=== PATIENT | male | born 1985 | race Hispanic/Latino ===

== ENCOUNTER 2019-02-02 20:23 | Emergency (ER) | payer SELFPAY ==
[2019-02-02] MEDS ORDERED: Ibuprofen 800 MG TAB ONE (20:48)
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
== END 2019-02-02 21:36 | disposition home or self-care (01) ==
LOC: SCSER 20:23
DX: M54.5 Low back pain (principal); M25.561 Pain in right knee; F17.210 Nicotine dependence, cigarettes, uncomplicated; V43.52XA Car driver injured in collision with other type car in traffic accident, initial encounter
CPT/HCPCS: 72100

== ENCOUNTER 2019-09-14 08:34 | Outpatient (CLI) | payer OTHER ==
--- NOTE | 2019-09-14 08:55 | RAD ---
Left index finger 3 views HISTORY: Left finger injury. FINDINGS: Joint spaces are preserved. No acute fracture or dislocation are apparent. Soft tissue irre gularity at the distal tuft present without metallic foreign body evident. IMPRESSION: Soft tissue injury. No acute osseous abnormalities or radiopaque foreign bodies apparent.
== END 2019-09-14 08:35 | disposition home or self-care (01) ==
LOC: RAD 08:34
DX: S61.231A Puncture wound without foreign body of left index finger without damage to nail, initial encounter (principal)

== ENCOUNTER 2020-01-25 15:27 | Inpatient (IN) | payer SELFPAY ==
[~2020-01-25 15:27] MED LIST: Iopamidol-370 76% 500 ML 1 ML ONE
[2020-01-25] MEDS ORDERED: Ibuprofen 800 MG TAB ONE (16:04)
[2020-01-25] MEDS ORDERED: HYDROcodone/Acetaminophen 5/325 mg Tablet ONE ×2 (16:04)
[2020-01-25 16:27] LABS: Bacteria/HPF None Seen HPF (None Seen); Bilirubin Negative (Negative); Blood, Urine 1+ (Negative); Clarity Clear (Clear); Glucose, Urine (Dipstick) Normal (Negative); Leukocyte Negative Leu/uL (Negative); Mucous/LPF Rare LPF (<2+); Nitrite Negative (Negative); Protein, Urine (Dipstick) 50 mg/dL (Neg-Trace); Squamous Epithelial 0-3 HPF (0-3); Urobilinogen Normal mg/dL (Less than 2); WBC/HPF 0-3 HPF (0-3)
--- NOTE | 2020-01-25 16:55 | ULT ---
Exam: Testicular ultrasound HISTORY: Mass posterior to the testicle. Associated pain. COMPARISON: None TECHNIQUE: Sagittal and transverse imaging of the left and right hemiscrotum are performed. Testicula r Doppler is performed with grayscale, color-flow, Doppler imaging and spectral waveform analysis. FINDINGS: Right hemiscrotum: Testicle: Homogeneous echotexture. No intratesticular masses. Right testicle measurements: 4.8 x 2.4 x 3.5 Right epididymis: Normal echotexture. Right epididymis measurements: 1.3 x 0.8 cm Hydrocele: None Left hemiscrotum: Left testicle: Homogeneous echotexture. No intratesticular masses. Left testicle measurements: 3.1 x 2.2 x 4.6 cm Left epididymis: Normal echotexture. Left epididymis measurements:1.2 x 0.7 cm Hydrocele: None Testicular Doppler: There is symmetric vascular flow to the left and right testicle. Perineal region: There is a nonvascular hypoechoic focus with punctate echogenic foci, measuring 2.3 x 2.4 x 2.2 cm. There is mild vascularity in the adjacent soft tissues. The possibility of a focal area of infection/inflammation the perineum cannot be excluded. IMPRESSION: 1. Normal testicular Doppler. 2. Nonvascular isoechoic focus with peripheral vascularity. Correlate for focal infection/inflammatio n. 3. If there is concern for a perirectal abscess, better interrogation with a postcontrast pelvic CT m ay be beneficial.
--- NOTE | 2020-01-25 18:29 | CT ---
PELVIC CT WITHOUT CONTRAST: 01/25/20 HISTORY: Posterior perineal pain x2 weeks. COMPARISON: 12/19/15. FINDINGS: The visualized psoas muscles, alimentary canal and mesentery do not demonstrate any acute inflammator y change. The urinary bladder has a normal appearance. The visualized osseous structures do not demon strate any acute abnormality. Symmetric appearance of the hip joint spaces. In the anterior perineum, just posterior to the scrotum is a peripherally enhancing centrally hypoden sity measuring 1.9 cm anterior posterior x 1.5 cm mediolateral x 2.9 cm craniocaudal. There does appe ar to be abnormal soft tissue density which is contiguous with the midline subcutaneous fat and appe ars to extend near the anterior margin of the distal rectum. When comparing the previous examination, there was evidence of abscess in the current region of concern. Findings may represent a recurrent a bscess which may be associated with the distal rectum. Presacral fat is preserved. No abnormal edema or attenuation of the gluteal subcutaneous fat as well as the gluteal musculature. IMPRESSION: Peripherally enhancing centrally hypodense lesion at the anterior base of the perineum which may be c ontiguous with the anterior margin of the rectum. Abscess/phlegmonous change is favored. General surg ical consultation for possible debridement is recommended. POS: PPP
[2020-01-25] MEDS: Piperacillin/Tazobactam 3.375 GM in Sodium Chloride 0.9% 100 ML IVPB SCH (20:15)
[2020-01-25 22:32] VITALS: BMI 32.5
[2020-01-25] MEDS ORDERED: Sodium Chloride 0.9% 1,000 ML IV SCH (23:59)
[2020-01-26] MEDS: Piperacillin/Tazobactam 3.375 GM in Sodium Chloride 0.9% 100 ML IVPB SCH (02:21)
[2020-01-26] MEDS ORDERED: Lidocaine 1% (PF) 30 ML VIAL ONE (08:35)
[2020-01-26] MEDS ORDERED: Fentanyl 100 MCG/2 ML VIAL SLOW IVP SCH ×2 (08:45→10:15)
--- NOTE | 2020-01-26 10:03 | HP ---
REASON FOR ADMISSION: Perineal abscess. CHIEF COMPLAINT: "It hurts really bad in my scrotum." HISTORY OF PRESENT ILLNESS: Mr. Jordan Win is a 34-year-old male, who presented to the ER with approximately 2-week history of perineal pain. The patient previously has history of an abscess in the same region, which apparently was drained [place] [address] Jackson. He had a similar presentation at this time and started having worsening pain and discomfort in his perineal area. He found that the pain was alleviated by lifting the scrotum. Unfortunately, the pain got to the point where he could walk properly without lifting his scrotum and he did want to go out in public, trying to hold his scrotum up while attempting to ambulate. His girlfriend stated that he needed to come into the emergency room. Upon arrival to the emergency room, the ER doctor noted that he did have a hard mass in the perineal area toward the posterior base of the scrotum. An ultrasound was done, which demonstrated a likely fluid-filled mass, which was not well visualized on ultrasound. A CT was recommended, which was then performed, which demonstrated approximately 2.9 cm x 1.5 cm fluid-filled collection consistent with an abscess in the area anterior to the rectum and posterior to the scrotum and testicles. This is pretty much the exact same location that the patient previously had reported for an I and D with Dr. Jackson in the past. The patient denies any fevers. He states he is urinating fine without any blood. He is not having urinary difficulty or defecation problems. He denies any blood in his stool. He has had no nausea or vomiting. He otherwise states he feels fine aside from the pain in his perineal area. ALLERGIES: NONE. HOME MEDICATIONS: None. PAST MEDICAL HISTORY: Perineal abscess. PAST SURGICAL HISTORY: I and D of perineal abscess. SOCIAL HISTORY: The patient denies smoking, alcohol abuse, or illicit drug use. FAMILY HISTORY: Noncontributory. REVIEW OF SYSTEMS: A 12-point review of systems reviewed and negative other than what was commented on the HPI. PHYSICAL EXAMINATION: VITAL SIGNS: Temperature 98, pulse 72, respirations 18, blood pressure 145/88, and saturation 97% on room air. GENERAL: Appears slightly uncomfortable, but appears stated age. Overweight. Answering questions appropriately. Well nourished, well developed. HEENT: Normocephalic, atraumatic. Pupils are symmetric and round. Sclerae are nonicteric. Trachea midline. Moist mucous membranes. CARDIOVASCULAR: Regular rate and rhythm. Normal S1 and S2. Symmetric pulses. CHEST: Nonlabored breathing, symmetric expansion of the lungs, clear anteriorly. ABDOMEN: Soft, nontender, and nondistended. Positive bowel sounds. No organomegaly. No rebound or guarding. No hernias. GENITOURINARY: The patient is circumcised. Penis is without lesions and nonfocal. Testes are bilaterally descended. There are no significant concerning changes on the anterior scrotum. With the scrotum elevated, there is an extremely tender palpable mass at the area of the posterior scrotum in between the spermatic cords, which is very tender to touch. There is no overlying skin abnormality erythema, but the nodule is firm and extremely tender to palpation. RECTAL: Deferred at this time. EXTREMITIES: No clubbing, cyanosis, or edema. MUSCULOSKELETAL: No joint deformities or joint erythema noted. Full range of motion. SKIN: Warm and dry. No rashes or lesions. Good turgor. Including the area and the perineum, where there is no overlying erythema or rash. NEUROLOGIC: Cranial nerves II through XII grossly intact. No focal or sensory motor deficits identified. LYMPH: No lymphadenopathy in the inguinal, popliteal, inner thighs, supraclavicular, or cervical areas. PSYCHIATRIC: Alert and oriented x3. Appropriate mood and affect. LABORATORY EVALUATION: Urinalysis demonstrates 7 to 10 rbc's, 1+ blood, 50 protein. Testicular ultrasound done on January 24 demonstrates normal testicular Doppler with nonvascular isoechoic focus with peripheral vascularity concerning for a possible abscess. Contrasted CT was recommended. Pelvic CT done on the same date following the ultrasound with contrast demonstrates a peripherally enhancing centrally hypodense lesion at the anterior base of the perineum, which may be contiguous with the anterior margin of the rectum, abscess or phlegmon changes as favored. ASSESSMENT AND PLAN: A 34-year-old male with a likely perineal abscess. By physical exam, this does not appear contiguous with the rectum. I discussed this with General Surgery and on their review of the imaging, they also felt that this was not contiguous with the rectum. They felt a simple I and D similar to what Dr. Jackson had performed last time should be sufficient. I discussed doing this in the operating room versus doing it at bedside. The patient stated he was willing to try bedside, but we did agree that if it was too painful that we would proceed to the operating room. The patient was consented. All equipment was obtained. The patient's skin was prepped and draped in usual sterile fashion with Betadine. Approximately 25 mL of 1% lidocaine plain was infiltrated around the skin and abscess cavity. Incision was initially started with an 11 blade through the perineal skin. As we approached the abscess cavity, the patient started to have increasingly higher amounts of pain until the patient stated he could not tolerate the pain anymore. Despite additional attempts at using more lidocaine, the patient was not able to tolerate. Therefore, we had not yet reached the abscess cavity. I think the patient has too much pain and we will likely not be able to tolerate full debridement as such I elected to pack the incision thus far, apply a Savi-Pad and we will keep the patient on antibiotics and pain medication n.p.o. and plan to go to the operating room, which arrangements have been made. PLAN: 1. Keep n.p.o. 2. Continue Zosyn. 3. SCDs on-call to the OR. 4. We will plan for OR for surgical debridement, cultures, and packing. 5. General Surgery to be on standby in case there is concern for continuity with the rectal area. Job ID: [id number]
[2020-01-26] MEDS ORDERED: Fentanyl 100 MCG/2 ML VIAL ONE (10:17)
[2020-01-26] MEDS ORDERED: Bupivacaine 0.25% HCL 30 ML VIAL ONE (10:19)
[2020-01-26] MEDS ORDERED: Gentamicin 80 MG/2 ML VIAL ONE (10:19)
[2020-01-26] MEDS ORDERED: Midazolam HCl 2 mg/2 ml Vial ONE (10:43)
[2020-01-26] MEDS ORDERED: Piperacillin/Tazobactam 3.375 GM VIAL ONE (11:10)
[2020-01-26] MEDS ORDERED: Dexamethasone 20 MG/5 ML VIAL ONE (11:15)
[2020-01-26] MEDS ORDERED: Ketorolac Tromethamine 30 MG/ML VIAL ONE (11:15)
[2020-01-26] MEDS ORDERED: PROPOFOL 200 MG/20 ML VIAL ONE (11:15)
[2020-01-26] MEDS ORDERED: Ondansetron PF 4 MG/2 ML Vial ONE (11:15)
[2020-01-26] MEDS ORDERED: Lidocaine 1% PF 5 ML VIAL ONE (11:15)
[2020-01-26] MEDS ORDERED: EPHEDRINE 25 MG/5 ML SYRINGE ONE (11:15)
[2020-01-26] MEDS ORDERED: Promethazine HCl 25 MG/ML VIAL IM PRN (12:00)
[2020-01-26] MEDS ORDERED: Ondansetron HCl/PF 4 MG/2 ML Vial IVP PRN (12:00)
[2020-01-26] MEDS ORDERED: Promethazine HCl 25 MG/ML VIAL SLOW IVP PRN (12:00)
[2020-01-26] MEDS ORDERED: Meperidine HCl/PF 25 MG/ML VIAL SLOW IVP PRN (12:00)
[2020-01-26] MEDS ORDERED: HYDROmorphone 2 MG/ML VIAL SLOW IVP PRN (12:00)
[2020-01-26] MEDS ORDERED: Morphine 2 MG/ML SYRINGE SLOW IVP PRN (12:07)
[2020-01-26] MEDS ORDERED: HYDROcodone/Acetaminophen 5/325 mg Tablet PO PRN ×2 (12:07)
--- NOTE | 2020-01-26 12:26 | DIS ---
DATE OF ADMISSION: 01/25/2020 DATE OF DISCHARGE: 01/26/2020 DISCHARGING PHYSICIAN: Vitaly Hammond MD ADMITTING DIAGNOSIS: Perineal abscess. DISCHARGE DIAGNOSIS: Perineal abscess. PROCEDURES PERFORMED WHILE INPATIENT: Incision and drainage of abscess with cystoscopy. BRIEF HISTORY: Mr. Ortega is a 34-year-old male with a prior history of perineal abscess. He began having pain for approximately 2 weeks and was found to have a perineal abscess on imaging when coming to the ER for ongoing and worsening pain. He was admitted to the hospital, where I initially evaluated him. The full H and P can be found in the scanned portion of the [employer]. HOSPITAL COURSE: After my initial evaluation with the patient, we attempted to do a bedside drainage of his abscess, but due to the deeper nature of the abscess, the patient's pain was too much, so we aborted and elected to complete the I and D in the operating room. His UA did demonstrate microhematuria preoperatively, so we performed a cystoscopy in the same setting. The cystoscopy did not demonstrate any abnormalities and the I and D was completed as the operative notes outlined in the dictated portion on the [employer] system. Postoperatively, the patient was doing well. He was given instructions on how to pack his wound, which was left open. He will then be discharged home and I will see him on an outpatient basis. DISPOSITION: Discharge to home. DISCHARGE CONDITION: Good. DISCHARGE MEDICATIONS: The patient will start [place] 5/325 mg 1 to 2 tabs p.o. q.4 hours p.r.n. pain. DISCHARGE INSTRUCTIONS: He should notify me for worsening drainage, fevers over 101, or increasing redness or swelling in the scrotum. Dressings need to be changed every day with iodoform, which will be explained by the nursing staff. He can shower, but should not submerge under water. He should avoid driving while on narcotic pain medicine. I will see him back in 1 week for postop evaluation. Job ID: [id number]
--- NOTE | 2020-01-26 12:32 | OP ---
DATE OF PROCEDURE: 01/26/2020 SERVICE: Urology. PREOPERATIVE DIAGNOSIS: Perineal abscess. POSTOPERATIVE DIAGNOSIS: Perineal abscess. PROCEDURES PERFORMED: Cystoscopy, and I and D of abscess. INDICATION FOR PROCEDURE: Mr. Ortega is a 34-year-old male with a prior history of a perineal abscess. He presented with another abscess this time. It was a little deep, but we attempted to perform an I and D at bedside. Unfortunately, the patient had too much pain, so we have elected to proceed with completing the I and D in the operating room. Risks and benefits have been discussed and he has agreed to proceed forward. Of note, the patient did have microhematuria on his UA. I told him that we should consider doing a cystoscopy as well to ensure that there is no continuity or source from the urinary tract. DESCRIPTION OF PROCEDURE: After identification of armband and verification of consent, the patient was brought back to the operating room, where he underwent general anesthesia with LMA. He was placed in the dorsal lithotomy position and prepped and draped in usual sterile fashion. After appropriate time-out, the previous incision which had been started at bedside was inspected. There was some bleeding from the skin edges, but otherwise everything else looked intact. Using a finder needle, which was an 18-gauge needle connected to a 10 mL syringe, several sticks were made through until the abscess cavity was identified. Once the abscess cavity was identified, an 11 blade was used to slightly expand the site of where the needle had gone through until the abscess cavity was opened. There was immediate release of approximately 5 to 10 mL of purulent fluid. This was sent for culture swab for Gram stain, anaerobes, and aerobes culture. The abscess cavity was completely cleaned out using a Yankauer suction until the abscess cavity was fully inspected. This was then copiously washed out with antibiotic irrigation using gentamicin in normal saline. Upon completion, the cavity was well opened. Inspection inside did not reveal any significant abnormalities. Using a separate glove, a rectal exam was performed with one finger in the abscess cavity and the other in the rectum, there was a substantial amount of tissue between the abscess cavity and the rectum, indicating no significant continuity between the rectal space and the abscess cavity by palpation, although there is possibly a fistulous or sinus tract present, this cannot be palpated. Because of the patient's microhematuria, the gloves were changed out and a cystoscope brought in. Using flexible cystoscopy, cystourethroscopy was performed, which demonstrated a normal urethra with no signs of inflammation, fistulous tracts, holes, or lesions. The prostate was not obstructing and normal-appearing. The bladder appeared completely normal without any mucosal abnormalities, no lesions, no trabeculations, diverticula, cellules, stones, or tumors noted. Both ureters were in the orthotopic location, effluxing clear urine. The cystoscope was then withdrawn. The abscess cavity was then packed using a quarter-inch iodoform gauze. The remainder of the iodoform gauze was saved for the patient to be able to pack his dressing later. The wound was left open. The patient was taken out of positioning, awakened, taken to PACU for recovery in stable condition. COMPLICATIONS: None. ESTIMATED BLOOD LOSS: Approximately 30 mL. RETAINED TUBES AND DRAINS: None. RETAINED ITEMS: Quarter-inch iodoform gauze, which is packed in the abscess cavity, which the patient will be given instructions how to change that everyday. FINDINGS: Again, no continuity of the abscess cavity to the rectum and the urethra per my inspection today. DISPOSITION: The patient will be put back in the hospital to the floor. We will then plan a discharge with followup on an outpatient basis. Job ID: [id number]
[2020-01-26 17:51] VITALS: BP 115/70; TEMP 97.9
== END 2020-01-26 18:25 | disposition home or self-care (01) | DRG 603 ==
LOC: ERS 15:27 → SURG A 19:37
PROVIDERS: ADMIT Urology; ATTEND Urology
PROC: 0W9M3ZZ Drainage of Male Perineum, Percutaneous Approach (ICD-10-PCS; principal; 2020-01-26)
PROC: 0TJB8ZZ Inspection of Bladder, Via Natural or Artificial Opening Endoscopic (ICD-10-PCS; 2020-01-26)
DX: L02.215 Cutaneous abscess of perineum (principal); R31.29 Other microscopic hematuria; Z87.891 Personal history of nicotine dependence
CPT/HCPCS: 72193; 76870; 81003; 81015; 87070; 87077; 87186; 87205; 93976; J1580; J2001; J2250; J2543; J3010; J3490; S0020

== ENCOUNTER 2021-03-16 15:02 | Emergency (ER) | payer SELFPAY ==
[2021-03-16] MEDS ORDERED: Ketorolac Tromethamine 30 MG/ML VIAL ONE (15:45)
[2021-03-16] MEDS ORDERED: Fentanyl 100 MCG/2 ML VIAL ONE (15:45)
[2021-03-16] MEDS ORDERED: Clindamycin/D5W 900 mg/50 ml Premix Bag ONE (15:45)
[2021-03-16 15:50] LABS: Bacteria/HPF None Seen HPF (None Seen); Bilirubin Negative (Negative); Blood, Urine 1+ (Negative); Clarity Clear (Clear); Glucose, Urine (Dipstick) Normal (Negative); Ketone, Urine Negative (Negative); Leukocyte Negative Leu/uL (Negative); Nitrite Negative (Negative); Protein, Urine (Dipstick) 20 mg/dL (Neg-Trace); RBC/HPF 0-3 HPF (0-3); Specific Gravity, Urine 1.031 (1.002-1.036); Squamous Epithelial None Seen HPF (0-3); Urobilinogen Normal mg/dL (Less than 2); WBC/HPF 0-3 HPF (0-3)
[2021-03-19 20:33] LABS: Chlam.trachomatis by PCR,Urine Not Detected (NotDetected)
== END 2021-03-16 18:23 | disposition home or self-care (01) ==
LOC: ERS 15:02
DX: N49.2 Inflammatory disorders of scrotum (principal); F17.210 Nicotine dependence, cigarettes, uncomplicated
CPT/HCPCS: 76870; 81003; 81015; 87491; 87591; 93976; 96365; 96375; J1885; J3010; J3490

== ENCOUNTER 2023-01-23 06:41 | Emergency (ER) | payer SELFPAY ==
[2023-01-23] MEDS ORDERED: Morphine 4 MG/ML VIAL ONE ×2 (06:58→09:00)
[2023-01-23] MEDS ORDERED: Ketorolac Tromethamine 30 MG/ML VIAL ONE (06:59)
[2023-01-23] MEDS ORDERED: Ondansetron PF 4 MG/2 ML Vial ONE (06:59)
[2023-01-23] MEDS ORDERED: Pantoprazole 40 MG VIAL ONE (06:59)
[2023-01-23 07:17] LABS: #Basophils 0.1 thou/uL (0.0-0.2); #Eosinphils 0.2 thou/uL (0.0-0.7); #Lymphocytes 3.1 thou/uL (1.20-3.40); #Monocytes 0.8 thou/uL (0.11-0.59); #Neutrophils 4.7 thou/uL (1.40-6.50); %Basophils 1.2 % (0.0-1.0); %Eosinophils 2.3 % (0.0-10.0); %Lymphocytes 34.9 % (21.0-51.0); %Monocytes 8.8 % (0.0-10.0); %Neutrophils 52.8 % (42.0-75.0); Hemoglobin 17.4 g/dL (14.0-18.0); Mean Corpuscular HGB CONC 36.2 g/dL (32.0-36.0); Mean Corpuscular Hemoglobin 33.5 pg (27.0-31.0); Mean Corpuscular Volume 92.6 fl (78.0-98.0); Mean Platelet Volume 8.2 fL (7.4-10.4); Platelet Count 252 10x3/uL (130-400); RBC Distribution Width 11.9 % (11.5-14.5); Red Blood Cell (RBC) Count 5.18 mill/uL (4.70-6.10); White Blood Cell (WBC) Count 8.9 10x3/uL (4.8-10.8)
[2023-01-23 07:40] LABS: ALT (SGPT) 82 U/L (8-55); AST (SGOT) 31 U/L (5-34); Albumin 4.6 g/dL (3.5-5.0); Alkaline Phosphatase 91 U/L (40-110); Anion Gap 15 mmol/L (10-20); BUN (Urea Nitrogen) 19 mg/dL (8.9-20.6); Bilirubin, Total 0.8 mg/dL (0.2-1.2); Calc. Creatinine Clearance 0 mL/min (70-130); Calcium 10.4 mg/dL (7.8-10.44); Carbon Dioxide 22 mmol/L (22-29); Chloride 105 mmol/L (98-107); Estimated GFR 89; Globulin 3.3 g/dL (2.4-3.5); Glucose 138 mg/dL (70-105); Lipase 39 U/L (8-78); Potassium 3.5 mmol/L (3.5-5.1); Protein, Total 7.9 g/dL (6.0-8.3); Sodium 138 mmol/L (136-145)
[2023-01-23] MEDS ORDERED: Dicyclomine 20 MG/2 ML VIAL ONE (09:00)
== END 2023-01-23 09:54 | disposition home or self-care (01) ==
LOC: ERS 06:41
DX: K80.50 Calculus of bile duct without cholangitis or cholecystitis without obstruction (principal); F17.210 Nicotine dependence, cigarettes, uncomplicated
CPT/HCPCS: 36415; 76705; 80053; 83690; 84484; 85025; 93005; 96372; 96374; 96375; 96376; C9113; J1885; J2270; J2405

== ENCOUNTER 2023-02-19 16:52 | Emergency (ER) | payer OTHER, SELFPAY ==
[2023-02-19] MEDS ORDERED: Rabies Immune Globulin/PF 300 UNITS/ML VIAL IM SCH (19:00)
[2023-02-19] MEDS ORDERED: Rabies Vaccine Human 2.5 UNITS VIAL ONE (19:21)
[2023-02-19] MEDS ORDERED: Boostrix 0.5 ML (Tdap) VIAL (>/=7 yrs of age) ONE (19:21)
== END 2023-02-19 20:10 | disposition home or self-care (01) ==
LOC: ERS 16:52
DX: S81.852A Open bite, left lower leg, initial encounter (principal); F17.210 Nicotine dependence, cigarettes, uncomplicated; W54.0XXA Bitten by dog, initial encounter; Z23 Encounter for immunization
CPT/HCPCS: 90375; 90471; 90675; 90715; 96372; 99283

== ENCOUNTER → 2023-02-22 | Day surgery (SDC) | payer SELFPAY ==
[~2023-02-22] MED LIST changes: -Iopamidol-370 76% 500 ML 1 ML ONE; +Rabies Vaccine Human 2.5 UNITS VIAL ONE
== END | disposition home or self-care (01) ==
LOC: ER/OP 12:49
DX: Z23 Encounter for immunization (principal); F17.200 Nicotine dependence, unspecified, uncomplicated; Z79.2 Long term (current) use of antibiotics
CPT/HCPCS: 90471; 90675

== ENCOUNTER → 2023-03-01 | Day surgery (SDC) | payer OTHER, SELFPAY | END | disposition home or self-care (01) | LOC: ER/OP 16:57 | PROVIDERS: ATTEND Emergency Medicine | DX: Z23 Encounter for immunization (principal); L03.90 Cellulitis, unspecified; Z79.2 Long term (current) use of antibiotics; W54.0XXA Bitten by dog, initial encounter | CPT/HCPCS: 90471; 90675 ==

== ENCOUNTER → 2023-03-05 | Day surgery (SDC) | payer SELFPAY | END | disposition home or self-care (01) | LOC: ER/OP 12:52 | PROVIDERS: ATTEND Registered Nurse | DX: Z23 Encounter for immunization (principal) | CPT/HCPCS: 90471; 90675 ==